=== PATIENT | male | born 1940 | race Caucasian/White ===

== ENCOUNTER 2024-09-22 15:00 | Inpatient (IN) ==
[2024-09-22 15:57] LABS: ALT/SGPT < 5 U/L (<40); AST/SGOT 34 U/L (<40); Albumin 3.1 gm/dL (3.2-5.2); Albumin/Globulin Ratio 1.3 (1.0-2.3); Alkaline Phosphatase 103 U/L (39-117); Anion Gap 12.0 (8.0-16.0); Bilirubin,Total 1.8 mg/dL (0.1-1.0); Blood Urea Nitrogen 10 mg/dL (8-23); Calcium 8.2 mg/dL (8.6-10.4); Carbon Dioxide 24 mmol/L (22-30); Chloride 97 mmol/L (96-108); Globulin 2.4 gm/dL (2.2-3.7); Glucose 110 mg/dL (70-105); Potassium 3.8 mmol/L (3.3-5.1); Sodium 133 mmol/L (133-145); Thyroid Stimulating Hormone 2.55 uIU/mL (0.27-5.01)
[2024-09-22] MEDS: LEVOFLOXACIN 750 MG/150 ML BAG IV ONE (16:55)
[2024-09-22 17:17] LABS: Basophils # (Auto) 0.01 K/mcL (0.00-0.30); Basophils % (Auto) 1.4 % (0.0-2.0); Eosinophils # (Auto) 0 K/mcL (0.00-0.70); Eosinophils % (Auto) 0 % (0.0-7.0); Hematocrit 26.4 % (40.1-51.0); Hemoglobin 8.5 g/dL (13.7-17.5); Lymphocytes # (Auto) 0.40 K/mcL (1.50-4.80); Lymphocytes % (Auto) 57.1 % (15.5-49.0); Mean Corpuscular HGB Conc 32.2 g/dL (31.0-36.0); Monocytes # (Auto) 0.22 K/mcL (0.10-0.90); Monocytes % (Auto) 31.4 % (1.0-12.0); Neutrophils % (Auto) 10.1 % (38.0-78.0); Platelet Count 85 K/mcL (140-440); RBC 2.74 M/mcL (4.63-6.08); WBC 0.7 K/mcL (4.5-11.0)
[2024-09-22] MEDS ORDERED: VANCOMYCIN PER PHARMACY IV SCH (17:30)
[2024-09-22] MEDS: TBO-FILGRASTIM 480 MCG/0.8 ML SYRINGE SQ SCH (17:56)
[2024-09-22] MEDS: FILGRASTIM 300 MCG/ML VIAL SQ ONE (17:59)
[2024-09-22] MEDS: 0.9 % SODIUM CHLORIDE 1,000 ML IV ONE (18:29)
[2024-09-22 19:07] LABS: Bacteria,Urine 0 /hpf (0); Color,Urine Amber; Glucose,Urine (UA) Negative (Negative); Ketones,Urine Trace mg/dL (Negative); Leukocyte Esterase,Urine Negative /uL (Negative); Mucus,Urine Mod /hpf; PH,Urine 5.5 (5.0-9.0); Protein,Urine 100 mg/dL (Negative); Specific Gravity,Urine 1.020 (1.000-1.035); Urobilinogen,Urine 4.0 mg/dL
[2024-09-22] MEDS ORDERED: guaiFENesin/DEXTROMETHORPHAN 5ML UD CUP PO PRN (20:17)
[2024-09-22] MEDS ORDERED: ONDANSETRON 4 MG/2 ML VIAL IV PRN (20:17)
[2024-09-22] MEDS ORDERED: IPRATROPIUM/ALBUTEROL 3 ML AMPUL.NEB NEB PRN (20:17)
[2024-09-22] MEDS: LEVOFLOXACIN 750 MG/150 ML BAG IV SCH (20:23)
[2024-09-22] MEDS: 0.9 % SODIUM CHLORIDE 1,000 ML IV SCH (20:54)
[2024-09-22] MEDS: SENNOSIDES 1 TABLET PO SCH (22:23)
[2024-09-22] MEDS: DOCUSATE SODIUM 100 MG CAPSULE PO SCH (22:23)
[2024-09-22] MEDS: 0.9 % SODIUM CHLORIDE 10 ML SYRINGE IV SCH (22:23)
[2024-09-23 06:49] LABS: ALT/SGPT < 5 U/L (<40); AST/SGOT 28 U/L (<40); Albumin 2.6 gm/dL (3.2-5.2); Albumin/Globulin Ratio 1.2 (1.0-2.3); Alkaline Phosphatase 84 U/L (39-117); Anion Gap 11.0 (8.0-16.0); Bilirubin,Total 1.7 mg/dL (0.1-1.0); Blood Urea Nitrogen 9 mg/dL (8-23); Calcium 7.5 mg/dL (8.6-10.4); Carbon Dioxide 21 mmol/L (22-30); Chloride 101 mmol/L (96-108); Globulin 2.2 gm/dL (2.2-3.7); Glucose 79 mg/dL (70-105); Potassium 4.1 mmol/L (3.3-5.1); Sodium 133 mmol/L (133-145)
[2024-09-23 07:02] LABS: Basophils # (Auto) 0 K/mcL (0.00-0.30); Basophils % (Auto) 0 % (0.0-2.0); Eosinophils # (Auto) 0 K/mcL (0.00-0.70); Eosinophils % (Auto) 0 % (0.0-7.0); Hematocrit 26.5 % (40.1-51.0); Hemoglobin 7.7 g/dL (13.7-17.5); Lymphocytes # (Auto) 0.31 K/mcL (1.50-4.80); Lymphocytes % (Auto) 42.5 % (15.5-49.0); Mean Corpuscular HGB Conc 29.1 g/dL (31.0-36.0); Monocytes # (Auto) 0.34 K/mcL (0.10-0.90); Monocytes % (Auto) 46.6 % (1.0-12.0); Neutrophils % (Auto) 10.9 % (38.0-78.0); Platelet Count 59 K/mcL (140-440); RBC 2.47 M/mcL (4.63-6.08); WBC 0.7 K/mcL (4.5-11.0)
[2024-09-23] MEDS: FILGRASTIM 300 MCG/ML VIAL SQ ONE (09:44)
[2024-09-23] MEDS: LEVOFLOXACIN 750 MG/150 ML BAG IV SCH (10:40)
[2024-09-23] MEDS: ACETAMINOPHEN 325 MG TABLET PO PRN (13:27)
[2024-09-23] MEDS: TBO-FILGRASTIM 480 MCG/0.8 ML SYRINGE SQ ONE (14:47)
[2024-09-24 07:15] LABS: ALT/SGPT < 5 U/L (<40); AST/SGOT 29 U/L (<40); Albumin 2.8 gm/dL (3.2-5.2); Albumin/Globulin Ratio 1.2 (1.0-2.3); Alkaline Phosphatase 92 U/L (39-117); Anion Gap 12.0 (8.0-16.0); Bilirubin,Direct 1.1 mg/dL (<0.3); Bilirubin,Total 2.0 mg/dL (0.1-1.0); Blood Urea Nitrogen 12 mg/dL (8-23); Calcium 8.1 mg/dL (8.6-10.4); Carbon Dioxide 22 mmol/L (22-30); Chloride 99 mmol/L (96-108); Globulin 2.3 gm/dL (2.2-3.7); Glucose 97 mg/dL (70-105); Phosphorous 1.4 mg/dL (2.5-4.5); Potassium 3.6 mmol/L (3.3-5.1); Sodium 133 mmol/L (133-145); Triglycerides 126 mg/dL (<150); Uric Acid 2.4 mg/dL (2.5-8.0)
[2024-09-24 08:37] LABS: Basophils # (Auto) 0.02 K/mcL (0.00-0.30); Basophils % (Auto) 1.3 % (0.0-2.0); Eosinophils # (Auto) 0.02 K/mcL (0.00-0.70); Eosinophils % (Auto) 1.3 % (0.0-7.0); Hematocrit 27.9 % (40.1-51.0); Hemoglobin 8.9 g/dL (13.7-17.5); Lymphocytes # (Auto) 0.88 K/mcL (1.50-4.80); Lymphocytes % (Auto) 56.4 % (15.5-49.0); Mean Corpuscular HGB Conc 31.9 g/dL (31.0-36.0); Monocytes # (Auto) 0.44 K/mcL (0.10-0.90); Monocytes % (Auto) 28.2 % (1.0-12.0); Neutrophils % (Auto) 11.5 % (38.0-78.0); Platelet Count 79 K/mcL (140-440); RBC 2.91 M/mcL (4.63-6.08); WBC 1.6 K/mcL (4.5-11.0)
[2024-09-24] MEDS: MAGIC MOUTHWASH SSP PRN (10:55)
[2024-09-24] MEDS: POTASSIUM PHOSPHATE 40 MEQ in DEXTROSE 5% IN WATER 500 ML IV ONE (10:55)
[2024-09-24] MEDS: TBO-FILGRASTIM 480 MCG/0.8 ML SYRINGE SQ ONE (13:53)
[2024-09-25 07:11] LABS: ALT/SGPT < 5 U/L (<40); AST/SGOT 30 U/L (<40); Albumin 2.6 gm/dL (3.2-5.2); Albumin/Globulin Ratio 1.2 (1.0-2.3); Alkaline Phosphatase 92 U/L (39-117); Anion Gap 13.0 (8.0-16.0); Bilirubin,Direct 1.1 mg/dL (<0.3); Bilirubin,Total 2.0 mg/dL (0.1-1.0); Blood Urea Nitrogen 13 mg/dL (8-23); Calcium 8.2 mg/dL (8.6-10.4); Carbon Dioxide 22 mmol/L (22-30); Chloride 98 mmol/L (96-108); Globulin 2.2 gm/dL (2.2-3.7); Glucose 87 mg/dL (70-105); Phosphorous 1.9 mg/dL (2.5-4.5); Potassium 3.7 mmol/L (3.3-5.1); Sodium 133 mmol/L (133-145); Triglycerides 138 mg/dL (<150); Uric Acid 2.7 mg/dL (2.5-8.0)
[2024-09-25 08:23] LABS: Basophils # (Auto) 0.01 K/mcL (0.00-0.30); Basophils % (Auto) 0.2 % (0.0-2.0); Eosinophils # (Auto) 0.01 K/mcL (0.00-0.70); Eosinophils % (Auto) 0.2 % (0.0-7.0); Hematocrit 27.7 % (40.1-51.0); Hemoglobin 8.9 g/dL (13.7-17.5); Lymphocytes # (Auto) 1.37 K/mcL (1.50-4.80); Lymphocytes % (Auto) 30.9 % (15.5-49.0); Mean Corpuscular HGB Conc 32.1 g/dL (31.0-36.0); Monocytes # (Auto) 0.91 K/mcL (0.10-0.90); Monocytes % (Auto) 20.5 % (1.0-12.0); Neutrophils % (Auto) 38.1 % (38.0-78.0); Platelet Count 91 K/mcL (140-440); RBC 2.91 M/mcL (4.63-6.08); WBC 4.4 K/mcL (4.5-11.0)
[2024-09-25] MEDS: PHOSPHORUS 250 MG TABLET PO SCH (09:58)
[2024-09-25] MEDS: POTASSIUM PHOSPHATE 40 MEQ in DEXTROSE 5% IN WATER 500 ML IV ONE (09:58)
== END 2024-09-25 13:38 | disposition home or self-care (01) | DRG 871 ==
LOC: ED 15:00 → MEDSUR 19:54
PROVIDERS: ADMIT Internal Medicine; ATTEND Internal Medicine

== ENCOUNTER 2024-10-02 14:31 | Inpatient (IN) ==
[2024-10-02] MEDS: 0.9 % SODIUM CHLORIDE 1,000 ML IV ONE ×2 (15:20→16:58)
[2024-10-02 15:53] LABS: Basophils # (Auto) 0.02 K/mcL (0.00-0.30); Basophils % (Auto) 0.1 % (0.0-2.0); Eosinophils # (Auto) 0 K/mcL (0.00-0.70); Eosinophils % (Auto) 0 % (0.0-7.0); Hematocrit 28.3 % (40.1-51.0); Hemoglobin 9.1 g/dL (13.7-17.5); Lymphocytes # (Auto) 0.63 K/mcL (1.50-4.80); Lymphocytes % (Auto) 1.6 % (15.5-49.0); Mean Corpuscular HGB Conc 32.2 g/dL (31.0-36.0); Monocytes # (Auto) 0.76 K/mcL (0.10-0.90); Monocytes % (Auto) 1.9 % (1.0-12.0); Neutrophils % (Auto) 95.7 % (38.0-78.0); Platelet Count 122 K/mcL (140-440); RBC 2.99 M/mcL (4.63-6.08); WBC 40.0 K/mcL (4.5-11.0)
[2024-10-02 16:09] LABS: Thyroid Stimulating Hormone 2.50 uIU/mL (0.27-5.01)
[2024-10-02 16:19] LABS: ALT/SGPT < 5 U/L (<40); AST/SGOT 45 U/L (<40); Albumin 2.5 gm/dL (3.2-5.2); Albumin/Globulin Ratio 1.3 (1.0-2.3); Alkaline Phosphatase 114 U/L (39-117); Anion Gap 12.0 (8.0-16.0); Bilirubin,Total 1.5 mg/dL (0.1-1.0); Blood Urea Nitrogen 17 mg/dL (8-23); Calcium 7.9 mg/dL (8.6-10.4); Carbon Dioxide 23 mmol/L (22-30); Chloride 100 mmol/L (96-108); Globulin 2.0 gm/dL (2.2-3.7); Glucose 110 mg/dL (70-105); Potassium 4.2 mmol/L (3.3-5.1); Sodium 135 mmol/L (133-145)
[2024-10-02] MEDS: VANCOMYCIN 1,500 MG in 0.9 % SODIUM CHLORIDE 500 ML IV ONE (17:44)
[2024-10-02] MEDS: CEFEPIME 2 GM VIAL IV ONE (17:44)
[2024-10-02] MEDS: cefTRIAXone 1 GM VIAL IV ONE (17:46)
[2024-10-02] MEDS: AZITHROMYCIN 500 MG in DEXTROSE 5% IN WATER 250 ML IV ONE (17:46)
[2024-10-02] MEDS: VANCOMYCIN PER PHARMACY IV ONE (19:30)
[2024-10-02 19:36] LABS: Bilirubin,Urine Negative (Negative); Color,Urine Yellow; Glucose,Urine (UA) Negative (Negative); Ketones,Urine Negative (Negative); Leukocyte Esterase,Urine Negative /uL (Negative); PH,Urine 5.5 (5.0-9.0); Protein,Urine 30 mg/dL (Negative); Specific Gravity,Urine 1.015 (1.000-1.035); Urobilinogen,Urine Normal
[2024-10-02] MEDS ORDERED: ACETAMINOPHEN 325 MG TABLET PO PRN (20:59)
[2024-10-02] MEDS ORDERED: SENNOSIDES 1 TABLET PO PRN (20:59)
[2024-10-02] MEDS ORDERED: HYDROcodone/APAP (PP) 5/325MG TABLET (#4) PO PRN (20:59)
[2024-10-02] MEDS ORDERED: POLYETHYLENE GLYCOL 3350 17 GM PACKET PO PRN (20:59)
[2024-10-02] MEDS ORDERED: IPRATROPIUM/ALBUTEROL 3 ML AMPUL.NEB NEB PRN (20:59)
[2024-10-02] MEDS ORDERED: VANCOMYCIN PER PHARMACY IV SCH (21:15)
[2024-10-02] MEDS: LACTATED RINGERS 1,000 ML IV SCH (21:36)
[2024-10-02] MEDS: MELATONIN 3 MG TABLET PO SCH (21:36)
[2024-10-02] MEDS: 0.9 % SODIUM CHLORIDE 10 ML SYRINGE IV SCH (21:36)
[2024-10-03] MEDS: VANCOMYCIN 1,000 MG in 0.9 % SODIUM CHLORIDE 250 ML IV ONE (03:54)
[2024-10-03] MEDS: CEFEPIME 2 GM VIAL IV SCH (03:54)
[2024-10-03] MEDS ORDERED: CEFEPIME 2 GM VIAL IV SCH ×2 (04:00→05:00)
[2024-10-03 06:02] LABS: Basophils # (Auto) 0.02 K/mcL (0.00-0.30); Basophils % (Auto) 0.1 % (0.0-2.0); Eosinophils # (Auto) 0 K/mcL (0.00-0.70); Eosinophils % (Auto) 0 % (0.0-7.0); Hematocrit 24.3 % (40.1-51.0); Hemoglobin 7.9 g/dL (13.7-17.5); Lymphocytes # (Auto) 0.89 K/mcL (1.50-4.80); Lymphocytes % (Auto) 4.2 % (15.5-49.0); Mean Corpuscular HGB Conc 32.5 g/dL (31.0-36.0); Monocytes # (Auto) 0.64 K/mcL (0.10-0.90); Monocytes % (Auto) 3.0 % (1.0-12.0); Neutrophils % (Auto) 92.3 % (38.0-78.0); Platelet Count 96 K/mcL (140-440); RBC 2.54 M/mcL (4.63-6.08); WBC 21.1 K/mcL (4.5-11.0)
[2024-10-03 06:35] LABS: ALT/SGPT < 5 U/L (<40); AST/SGOT 38 U/L (<40); Albumin 2.1 gm/dL (3.2-5.2); Albumin/Globulin Ratio 1.1 (1.0-2.3); Alkaline Phosphatase 94 U/L (39-117); Anion Gap 7.0 (8.0-16.0); Bilirubin,Direct 0.7 mg/dL (<0.3); Bilirubin,Total 1.1 mg/dL (0.1-1.0); Blood Urea Nitrogen 17 mg/dL (8-23); Calcium 7.4 mg/dL (8.6-10.4); Carbon Dioxide 25 mmol/L (22-30); Chloride 105 mmol/L (96-108); Globulin 1.9 gm/dL (2.2-3.7); Glucose 88 mg/dL (70-105); Phosphorous 3.2 mg/dL (2.5-4.5); Potassium 4.2 mmol/L (3.3-5.1); Sodium 137 mmol/L (133-145); Triglycerides 60 mg/dL (<150); Uric Acid 5.7 mg/dL (2.5-8.0)
[2024-10-03] MEDS: METHOCARBAMOL 1,000 MG/10 ML VIAL IV PRN (09:16)
[2024-10-03] MEDS: ENOXAPARIN 40 MG/0.4 ML SYRINGE SQ SCH (09:19)
[2024-10-03] MEDS ORDERED: VANCOMYCIN 1,250 MG in 0.9 % SODIUM CHLORIDE 500 ML IV SCH (16:00)
[2024-10-03] MEDS: ONDANSETRON 4 MG/2 ML VIAL IV PRN (16:10)
[2024-10-04 07:30] LABS: ALT/SGPT < 5 U/L (<40); AST/SGOT 41 U/L (<40); Albumin 2.2 gm/dL (3.2-5.2); Albumin/Globulin Ratio 0.9 (1.0-2.3); Alkaline Phosphatase 117 U/L (39-117); Anion Gap 11.0 (8.0-16.0); Bilirubin,Direct 0.7 mg/dL (<0.3); Bilirubin,Total 1.4 mg/dL (0.1-1.0); Blood Urea Nitrogen 18 mg/dL (8-23); Calcium 7.9 mg/dL (8.6-10.4); Carbon Dioxide 20 mmol/L (22-30); Chloride 103 mmol/L (96-108); Globulin 2.5 gm/dL (2.2-3.7); Glucose 95 mg/dL (70-105); Phosphorous 2.3 mg/dL (2.5-4.5); Potassium 4.3 mmol/L (3.3-5.1); Sodium 134 mmol/L (133-145); Triglycerides 96 mg/dL (<150); Uric Acid 5.4 mg/dL (2.5-8.0)
[2024-10-04 07:41] LABS: Basophils # (Auto) 0.02 K/mcL (0.00-0.30); Basophils % (Auto) 0.1 % (0.0-2.0); Eosinophils # (Auto) 0 K/mcL (0.00-0.70); Eosinophils % (Auto) 0 % (0.0-7.0); Hematocrit 31.6 % (40.1-51.0); Hemoglobin 9.4 g/dL (13.7-17.5); Lymphocytes # (Auto) 0.98 K/mcL (1.50-4.80); Lymphocytes % (Auto) 6.1 % (15.5-49.0); Mean Corpuscular HGB Conc 29.7 g/dL (31.0-36.0); Monocytes # (Auto) 0.67 K/mcL (0.10-0.90); Monocytes % (Auto) 4.1 % (1.0-12.0); Neutrophils % (Auto) 89.4 % (38.0-78.0); Platelet Count 86 K/mcL (140-440); RBC 3.08 M/mcL (4.63-6.08); WBC 16.2 K/mcL (4.5-11.0)
[2024-10-04] MEDS: CALCIUM CARBONATE 500 MG TAB.CHEW CHEWED PRN (19:24)
[2024-10-04] MEDS: TAMSULOSIN 0.4 MG CAPSULE PO SCH (20:22)
[2024-10-05 06:39] LABS: Basophils # (Auto) 0.03 K/mcL (0.00-0.30); Basophils % (Auto) 0.2 % (0.0-2.0); Eosinophils # (Auto) 0 K/mcL (0.00-0.70); Eosinophils % (Auto) 0 % (0.0-7.0); Hematocrit 26.4 % (40.1-51.0); Hemoglobin 8.8 g/dL (13.7-17.5); Lymphocytes # (Auto) 0.80 K/mcL (1.50-4.80); Lymphocytes % (Auto) 5.7 % (15.5-49.0); Mean Corpuscular HGB Conc 33.3 g/dL (31.0-36.0); Monocytes # (Auto) 0.64 K/mcL (0.10-0.90); Monocytes % (Auto) 4.6 % (1.0-12.0); Neutrophils % (Auto) 89.3 % (38.0-78.0); Platelet Count 127 K/mcL (140-440); RBC 2.84 M/mcL (4.63-6.08); WBC 14.1 K/mcL (4.5-11.0)
[2024-10-05 07:33] LABS: C-Reactive Protein 14.20 mg/dL (0.03-0.80)
[2024-10-05 07:37] LABS: ALT/SGPT < 5 U/L (<40); AST/SGOT 42 U/L (<40); Albumin 2.2 gm/dL (3.2-5.2); Albumin/Globulin Ratio 0.9 (1.0-2.3); Alkaline Phosphatase 116 U/L (39-117); Anion Gap 12.0 (8.0-16.0); Bilirubin,Direct 0.8 mg/dL (<0.3); Bilirubin,Total 1.4 mg/dL (0.1-1.0); Blood Urea Nitrogen 18 mg/dL (8-23); Calcium 8.0 mg/dL (8.6-10.4); Carbon Dioxide 21 mmol/L (22-30); Chloride 103 mmol/L (96-108); Globulin 2.4 gm/dL (2.2-3.7); Glucose 97 mg/dL (70-105); Phosphorous 2.4 mg/dL (2.5-4.5); Potassium 3.9 mmol/L (3.3-5.1); Sodium 136 mmol/L (133-145); Triglycerides 96 mg/dL (<150); Uric Acid 5.0 mg/dL (2.5-8.0)
[2024-10-05] MEDS: LEVOFLOXACIN 750 MG/150 ML BAG IV SCH (09:18)
[2024-10-05] MEDS: OMEPRAZOLE 20 MG CAPSULE PO SCH (10:47)
[2024-10-05] MEDS: NEUTRA PHOS 1 PACKET PO SCH (20:27)
[2024-10-05] MEDS: MAG HYDROX/AL HYDROX/SIMETH 30 ML ORAL.SUSP PO PRN (22:43)
[2024-10-05] MEDS: MAG HYDROX/AL HYDROX/SIMETH 30 ML ORAL.SUSP ONE (22:43)
[2024-10-06 06:55] LABS: ALT/SGPT < 5 U/L (<40); AST/SGOT 40 U/L (<40); Albumin 2.1 gm/dL (3.2-5.2); Albumin/Globulin Ratio 1.0 (1.0-2.3); Alkaline Phosphatase 114 U/L (39-117); Anion Gap 10.0 (8.0-16.0); Bilirubin,Direct 0.7 mg/dL (<0.3); Bilirubin,Total 1.2 mg/dL (0.1-1.0); Blood Urea Nitrogen 16 mg/dL (8-23); Calcium 8.1 mg/dL (8.6-10.4); Carbon Dioxide 21 mmol/L (22-30); Chloride 103 mmol/L (96-108); Globulin 2.2 gm/dL (2.2-3.7); Glucose 96 mg/dL (70-105); Phosphorous 2.6 mg/dL (2.5-4.5); Potassium 4.2 mmol/L (3.3-5.1); Sodium 134 mmol/L (133-145); Triglycerides 90 mg/dL (<150); Uric Acid 4.5 mg/dL (2.5-8.0)
[2024-10-06 08:26] LABS: Basophils # (Auto) 0.02 K/mcL (0.00-0.30); Basophils % (Auto) 0.2 % (0.0-2.0); Eosinophils # (Auto) 0 K/mcL (0.00-0.70); Eosinophils % (Auto) 0 % (0.0-7.0); Hematocrit 29.5 % (40.1-51.0); Hemoglobin 9.6 g/dL (13.7-17.5); Lymphocytes # (Auto) 0.74 K/mcL (1.50-4.80); Lymphocytes % (Auto) 8.6 % (15.5-49.0); Mean Corpuscular HGB Conc 32.5 g/dL (31.0-36.0); Monocytes # (Auto) 0.61 K/mcL (0.10-0.90); Monocytes % (Auto) 7.1 % (1.0-12.0); Neutrophils % (Auto) 84.0 % (38.0-78.0); Platelet Count 122 K/mcL (140-440); RBC 3.14 M/mcL (4.63-6.08); WBC 8.6 K/mcL (4.5-11.0)
[2024-10-06] MEDS: LEVOFLOXACIN 750 MG TABLET PO SCH (09:13)
[2024-10-06] MEDS ORDERED: ONDANSETRON 4 MG ODT TABLET SL PRN (12:15)
[2024-10-06] MEDS ORDERED: PANTOPRAZOLE 40 MG TABLET PO SCH (17:00)
[2024-10-07] MEDS ORDERED: LEVOFLOXACIN 750 MG TABLET PO SCH (09:00)
== END 2024-10-06 14:35 | DRG 193 ==
LOC: ED 14:31 → MEDSUR 20:48
PROVIDERS: ADMIT Student in an Organized Health Care Education/Training Program; ATTEND Student in an Organized Health Care Education/Training Program